=== PATIENT | female | born 1955 | race Caucasian/White ===

== ENCOUNTER → 2021-06-14 18:05 | Outpatient (CLI) | payer MEDICARE, OTHER, SELFPAY | PROVIDERS: Visit Provider Physician Assistant | DX: R21 Rash and other nonspecific skin eruption (principal) | CPT/HCPCS: 87070; 87075; 87077; 87147; 87185; 87186; 87205 ==

== ENCOUNTER → 2021-09-12 12:40 | Outpatient (CLI) | payer MEDICARE, OTHER, SELFPAY | DX: Z78.0 Asymptomatic menopausal state (principal); Z13.820 Encounter for screening for osteoporosis; Z90.710 Acquired absence of both cervix and uterus | CPT/HCPCS: 77080 ==

== ENCOUNTER → 2021-09-12 12:46 | Outpatient (CLI) | payer MEDICARE, OTHER, SELFPAY ==
--- NOTE | 2021-09-12 12:48 | DI.MG.S_ITS ---
BILATERAL DIGITAL SCREENING MAMMOGRAM 3D/2D WITH CAD: 09/12/2021 CLINICAL: Routine screening. Family history of breast cancer. Comparison is made to exams dated: 08/15/2020 mammogram, 04/28/2018 mammogram, and 01/15/2017 mammogram - outside location. There are scattered fibroglandular elements in both breasts. Current study was also evaluated with a Computer Aided Detection (CAD) system. There is a biopsy clip in the right breast. No significant masses, calcifications, or other findings are seen in either breast. There has been no significant interval change. IMPRESSION: NEGATIVE There is no mammographic evidence of malignancy. A 1 year screening mammogram is recommended. Based on the Tyrer Cuzick model (a risk assessment model) the patient's lifetime risk is 8.3% and her 10 year risk is 4.4%. According to the ACR, ACS, and NCCN guidelines, an annual breast MRI exam along with mammogram is recommended if the patient's lifetime risk is 20% or greater. This exam was interpreted at Station ID: [id number]. NOTE: For mammograms, a report in lay terms will be sent to the patient. Approximately 15% of breast malignancies will not be visualized mammographically. In the management of a palpable breast mass, a negative mammogram must not discourage biopsy of a clinically suspicious lesion. Electronically Signed By: Daryl raza/brian:09/12/2021 14:17:11 letter sent: Normal Exam ACR BI-RADS Category 1: Negative [id number]
== END ==
DX: Z12.31 Encounter for screening mammogram for malignant neoplasm of breast (principal); Z80.3 Family history of malignant neoplasm of breast
CPT/HCPCS: 77063; 77067

== ENCOUNTER → 2022-10-04 14:16 | Outpatient (CLI) | payer MEDICARE, OTHER, SELFPAY ==
[2022-10-04 15:44] LABS: Creatinine Urine Random 189.1 mg/dL
[2022-10-04 16:05] LABS: Microalbumin Urine Random < 0.6 mg/dL (0-1.6)
[2022-10-04 16:13] LABS: Alanine Aminotransferase 25 IU/L (<35); Albumin Globulin Ratio 1.5 (1.0-2.8); Alkaline Phosphatase 88 U/L (38-126); Aspartate Aminotransferase 26 IU/L (14-36); BUN Creatinine Ratio 20.2 (6-22); Bilirubin Total 0.3 mg/dL (0.2-1.3); Blood Urea Nitrogen 19 mg/dL (7-17); Calcium 9.2 mg/dL (8.4-10.2); Carbon Dioxide 29 mmol/L (22-32); Chloride 102 mmol/L (98-107); Cholesterol 208 mg/dL (140-199); Estimated Glomerular Filt Rate > 60 mL/min (>60); Globulin 2.7 g/dL (1.7-4.1); Glucose 106 mg/dL (80-110); HDL Cholesterol 60 mg/dL (40-60); HEMOLYSIS < 15 (0-50); LDL Cholesterol Calculated 95 mg/dL (<100); Potassium 3.8 mmol/L (3.4-5.1); Sodium 139 mmol/L (137-145); Total Protein 6.7 g/dL (6.3-8.2); Triglycerides 265 mg/dL (35-150)
== END ==
PROVIDERS: PCP Family Medicine; Referring Provider Family Medicine; Visit Provider Family Medicine
DX: Z00.00 Encounter for general adult medical examination without abnormal findings (principal); I10 Essential (primary) hypertension; Z12.11 Encounter for screening for malignant neoplasm of colon
CPT/HCPCS: 36415; 80053; 80061; 82043; 82570

== ENCOUNTER → 2022-12-02 09:55 | Outpatient (CLI) | payer MEDICARE, OTHER, SELFPAY ==
--- NOTE | 2022-12-02 | DI.MG.S_ITS ---
BILATERAL DIGITAL SCREENING MAMMOGRAM 3D/2D WITH CAD: 12/02/2022 CLINICAL: Routine screening. Family history of breast cancer. Comparison is made to exams dated: 09/12/2021 mammogram - [facility], 08/15/2020 mammogram, and 04/28/2018 mammogram - outside location. There are scattered areas of fibroglandular density in both breasts (category b / 25%-50% glandular tissue). Current study was also evaluated with a Computer Aided Detection (CAD) system. There is a biopsy clip in the right breast. No significant masses, calcifications, or other findings are seen in either breast. There has been no significant interval change. IMPRESSION: NEGATIVE There is no mammographic evidence of malignancy. A 1 year screening mammogram is recommended. Based on the Tyrer Cuzick model (a risk assessment model) the patient's lifetime risk is 7.9% and her 10 year risk is 4.4%. According to the ACR, ACS, and NCCN guidelines, an annual breast MRI exam along with mammogram is recommended if the patient's lifetime risk is 20% or greater. This exam was interpreted at Station ID: [id number]. NOTE: For mammograms, a report in lay terms will be sent to the patient. Approximately 15% of breast malignancies will not be visualized mammographically. In the management of a palpable breast mass, a negative mammogram must not discourage biopsy of a clinically suspicious lesion. Electronically Signed By: Daryl raza/brian:12/03/2022 16:04:33 letter sent: Normal Exam ACR BI-RADS Category 1: Negative [id number]
== END ==
PROVIDERS: PCP Family Medicine; Referring Provider Family Medicine; Visit Provider Family Medicine
DX: Z12.31 Encounter for screening mammogram for malignant neoplasm of breast (principal); Z80.3 Family history of malignant neoplasm of breast
CPT/HCPCS: 77063; 77067

== ENCOUNTER → 2023-12-04 12:30 | Outpatient (CLI) | payer MEDICARE, SELFPAY ==
--- NOTE | 2023-12-04 12:33 | DI.MG.S_ITS ---
BILATERAL DIGITAL SCREENING MAMMOGRAM 3D/2D WITH CAD: 12/04/2023 CLINICAL: Routine screening. Family history of breast cancer. Comparison is made to exams dated: 12/02/2022 mammogram, 09/12/2021 mammogram - [facility], and 08/15/2020 mammogram - outside location. There are scattered areas of fibroglandular density (category b / 25%-50% glandular tissue). Current study was also evaluated with a Computer Aided Detection (CAD) system. There is a biopsy clip in the right breast. No significant masses, calcifications, or other findings are seen in either breast. There has been no significant interval change. IMPRESSION: NEGATIVE There is no mammographic evidence of malignancy. A 1 year screening mammogram is recommended. Based on the Tyrer Cuzick model (a risk assessment model) the patient's lifetime risk is 7.5% and her 10 year risk is 4.4%. According to the ACR, ACS, and NCCN guidelines, an annual breast MRI exam along with mammogram is recommended if the patient's lifetime risk is 20% or greater. This exam was interpreted at Station ID: [id number]. NOTE: For mammograms, a report in lay terms will be sent to the patient. Approximately 15% of breast malignancies will not be visualized mammographically. In the management of a palpable breast mass, a negative mammogram must not discourage biopsy of a clinically suspicious lesion. Electronically Signed By: Tra colon/brian:12/05/2023 08:40:25 letter sent: Normal Exam ACR BI-RADS Category 1: Negative
--- NOTE | 2023-12-04 12:34 | DI.RAD.S_ITS ---
PROCEDURE: XR DEXA AXIAL SKELETON INDICATIONS: ROUTINE SCREENING / OSTEOPOROSIS SCREENING COMPARISON: [facility], ADAM, XR DEXA AXIAL SKELETON, 09/12/2021, 13:02. FINDINGS: Lumbar Spine: Bone mineral density 1.637 g/cm2, T score 5.1 Left Hip: Bone mineral density 0.994 g/cm2, T score 0.4. There is interval 17.7% decrease in total left hip bone mineral density. Left Femoral Neck: Bone mineral density 0.731 g/cm2, T score -1.1. There is interval 44.8% decrease in left femoral neck bone mineral density. Right Hip: Bone mineral density 0.940 g/cm2, T score 0.0. There is interval 0.1% decrease in right total hip bone mineral density. Right Femoral Neck: Bone mineral density 0.755 g/cm2, T score -0.8. There is interval 1.5% decrease in right femoral neck bone mineral density. Fracture Risk Calculation (when applicable): 10-year fracture risk of a major osteoporotic fracture 8.4 percent and of a hip fracture 0.8 percent. (T score greater or equal to -1.0 to: NORMAL) (T score from -1.1 to -2.4: OSTEOPENIA) (T score less than or equal to -2.5: OSTEOPOROSIS) IMPRESSION: Osteopenia with increased 10 year fracture risk. Follow-up guidelines as follows: Osteoporosis: Consider a repeat DEXA and Vertebral Fracture Assessment (VFA) exam in 2 years or sooner if medically necessary, to reassess this patient's status. Osteopenia: Consider a repeat DEXA in 2-3 years to reassess this patient's status, or if there is a new clinical indication. Normal: Consider a repeat DEXA in 5 years or sooner, or if there is a new clinical indication. All treatment decisions require clinical judgment and consideration of individual patient factors, including patient preferences, comorbidities, previous drug use, risk factors not captured in the FRAX model (e.g., frailty, falls, vitamin D deficiency, increased bone turnover, interval significant decline in bone density ) and possible under- or over-estimation of fracture risk by FRAX. In addition, the NOF Guide recommends that FDA-approved medical therapies be considered in postmenopausal women and men age >= 50 years with a: * Hip or vertebral (clinical or morphometric) fracture * T-score of <=-2.5 at the spine or hip * Ten-year fracture probability by FRAX of >= 3% for hip fracture or >=20% for major osteoporotic fracture. People with diagnosed cases of osteoporosis or at high risk for fracture should have regular bone mineral density tests. For patients eligible for Medicare, routine testing is allowed once every 2 years. The testing frequency can be increased to one year for patients who have rapidly progressing disease, those who are receiving or discontinuing medical therapy to restore bone mass, or have additional risk factors. Dictated by: Shashi Sanford M.D. on 12/04/2023 at 13:48 Approved by: Shashi Sanford M.D. on 12/04/2023 at 13:53
== END ==
PROVIDERS: PCP Physician Assistant; Referring Provider Physician Assistant; Visit Provider Physician Assistant
DX: Z12.31 Encounter for screening mammogram for malignant neoplasm of breast (principal); Z78.0 Asymptomatic menopausal state; Z80.3 Family history of malignant neoplasm of breast; M85.852 Other specified disorders of bone density and structure, left thigh
CPT/HCPCS: 77063; 77067; 77080

== ENCOUNTER 2024-07-29 00:27 | Emergency (ER) | payer MEDICARE, SELFPAY ==
[2024-07-29] VITALS (12 sets, daily range): BP systolic 155–193; BP diastolic 74–91; PULSE 64–92; RESP 17–25; TEMP 36.6; O2SAT 93–98; BMI 35.7
--- NOTE | 2024-07-29 00:58 | EKG_ITS ---
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
--- NOTE | 2024-07-29 00:58 | DI.RAD.S_ITS ---
PROCEDURE: XR CHEST 1V INDICATIONS: Chest Pain TECHNIQUE: One view of the chest was acquired. COMPARISON: None. FINDINGS: Surgical changes and devices: None. Lungs and pleura: Lungs are clear. No pleural effusions or pneumothorax. Mediastinum: Mediastinal contours appear normal. Heart size is normal. Bones and chest wall: No suspicious bony lesions. Overlying soft tissues appear unremarkable. IMPRESSION: No acute cardiopulmonary abnormalities or focal consolidation. Dictated by: Tra Ayoub M.D. on 07/29/2024 at 2:21 Approved by: Tra Ayoub M.D. on 07/29/2024 at 2:22
[2024-07-29 01:31] LABS: Add Manual Diff / Slide Review NO; Basophils Absolute Auto 100 /uL (0-100); Basophils Percent Auto 1.2 % (0-2); Eosinophils Absolute Auto 300 /uL (0-450); Eosinophils Percent Auto 3.6 % (2-4); Hemoglobin 14.2 g/dL (12.0-16.0); Lymphocytes Absolute Auto 3100 /uL (1100-4500); Lymphocytes Percent Auto 41.1 % (25-40); Mean Corpuscular HGB Conc 34.6 % (30-36); Mean Corpuscular Hemoglobin 33.3 PG (26-34); Mean Corpuscular Volume 96.3 fL (80-100); Monocytes Absolute Auto 700 /uL (0-900); Monocytes Percent Auto 9.2 % (3-14); Neutrophils Absolute Auto 3400 /uL (1500-7000); Neutrophils Percent Auto 44.9 % (50-75); Platelet Count 273 X10^3/uL (150-400); Red Blood Cell Count 4.26 X10^6/uL (4.0-5.2); Red Cell Distribution Width 13.9 % (11.6-14.8); White Blood Cell Count 7.7 X10^3/uL (4.5-11.0)
[2024-07-29 01:35] LABS: Prothrombin Time 10.9 SECONDS (9.4-12.5)
[2024-07-29 01:38] LABS: PTT Partial Thromboplastin Tim 37 SECONDS (25.1-36.5)
[2024-07-29] MEDS: ASPIRIN 81 MG CHEW TAB 324 MG PO (01:51)
[2024-07-29 01:55] LABS: Alanine Aminotransferase 28 IU/L (<35); Albumin Globulin Ratio 1.4 (1.0-2.8); Alkaline Phosphatase 87 U/L (38-126); Aspartate Aminotransferase 33 IU/L (14-36); BUN Creatinine Ratio 13.9 (6-22); Bilirubin Total 0.7 mg/dL (0.2-1.3); Blood Urea Nitrogen 16 mg/dL (7-17); Calcium 9.8 mg/dL (8.4-10.2); Carbon Dioxide 29 mmol/L (22-32); Chloride 103 mmol/L (98-107); Creatine Kinase 64 U/L (30-135); Estimated Glomerular Filt Rate 51 mL/min (>60); Globulin 2.8 g/dL (1.7-4.1); Glucose 106 mg/dL (70-99); HEMOLYSIS < 15 (0-50); Lipase 72 U/L (23-300); Magnesium 1.8 mg/dL (1.6-2.3); Potassium 3.9 mmol/L (3.4-5.1); Sodium 138 mmol/L (137-145); Total Protein 6.8 g/dL (6.3-8.2)
[2024-07-29 02:07] LABS: NT-proBNP (BNP-Adult 18+) 123 pg/mL (<125); Troponin I < 0.012 ng/mL (0.01-0.034)
--- NOTE | 2024-07-29 02:52 | ED_ITS ---
HPI - Chest Pain General Chief Complaint: Chest Pain Stated Complaint: High Blood pressure, Chest Pressure, Headache Time Seen by Provider: 07/29/24 01:46 Source: patient Mode of arrival: Ambulatory History of Present Illness HPI narrative: 69-year-old woman with a history of hypertension, migraine it earlier today had headache took her usual migraine medications and had minimal effect in reducing her headache. She then checked her blood pressure and found it to be relatively high with systolics in the 180 range. She was noticing some mild upper chest pressure and perhaps a sense of indigestion at this time and comes in for further evaluation. She has never had heart issues that she is aware of. By the time we are talking however symptoms have essentially resolved. Headache is gone, there is no chest pressure. Blood pressure still is slightly elevated. No palpitations lower extremity edema, abdominal pain, nausea or vomiting Related Data Previous Rx's ?Medication ?Instructions ?Recorded mupirocin 2 % topical ointment 1 applic topical BID-TI D 7 days 06/16/21 #22 grams Allergies Allergy/AdvReac Type Severity Reaction Status Date / Time No Known Drug Allergies Allergy Verified 07/29/24 00:48 Review of Systems Review of Systems Narrative: Pertinent positive and negative findings as per HPI Patient History Medical History (Updated 07/29/24 @ 04:38 by Lisa Galarza MD) Hypertension Migraine headache Smoking Status: Never smoker Alcohol type: hard liquor Exam Initial Vital Signs Initial Vital Signs: Vital Signs Temperature 97.8 F 07/29/24 00:48 Pulse Rate 92 H 07/29/24 00:48 Respiratory Rate 18 07/29/24 00:48 Blood Pressure 180/89 H 07/29/24 00:48 Pulse Oximetry 94 07/29/24 00:48 Oxygen Delivery Method Room Air 07/29/24 00:48 General: Healthy appearing, in no acute distress. Able to give a complete and coherent history. Well-nourished well-developed HEENT: Moist mucous membranes, normal sclera with reactive pupils, Neck: No JVD, supple Respiratory: Lungs are clear to auscultation, no wheezing no rales no rhonchi. Full and symmetrical air movement Cardiac: Regular rate and rhythm no murmurs no bruits Abdomen: Soft, nontender, no rebound or guarding, no flank pain Skin: Warm and dry, no rashes Neurologic: Grossly neurologically intact with no obvious asymmetries or abnormalities Extremities: No trauma, well perfused Psych: Cooperative, appropriate insight and affect Course Orders Ordered: ED Orders 07/29/24 00:58 XR chest 1V Stat EKG-12 Lead Stat 07/29/24 01:16 Complete Blood Count AUTO DIFF Stat Comprehensive Metabolic Panel Stat Lipase Stat Magnesium Stat NT-proBNP (BNP-Adult 18+) Stat PTT Partial Thromboplastin Travis Stat Prothrombin Time INR Stat Troponin & CK Cardiac Panel Stat Discontinued Medications Aspirin (Aspirin 81 Mg Chew Tab) 324 mg PO NOW ONE Stop: 07/29/24 00:59 Last Admin: 07/29/24 01:51 Dose: 324 mg Documented By: POLLO Vital Signs Vital signs: Vital Signs - 8 hr 07/29/24 00:48 07/29/24 01:54 07/29/24 02:00 Temperature 97.8 F Pulse Rate 92 H 86 80 Respiratory Rate 18 24 Blood Pressure 180/89 H Pulse Oximetry 94 94 93 Oxygen Delivery Method Room Air 07/29/24 02:01 07/29/24 02:01 07/29/24 02:30 Temperature Pulse Rate 79 77 Respiratory Rate 21 25 H Blood Pressure 165/74 H Pulse Oximetry 93 93 Oxygen Delivery Method 07/29/24 02:31 07/29/24 02:31 Temperature Pulse Rate 77 Respiratory Rate 24 Blood Pressure 172/78 H Pulse Oximetry 94 Oxygen Delivery Method MDM - Chest Pain Lab Data 07/29/24 01:16 07/29/24 01:16 Labs: Lab Results 07/29/24 Range/Units 01:16 WBC 7.7 (4.5-11.0) X10^3/uL RBC 4.26 (4.0-5.2) X10^6/uL Hgb 14.2 (12.0-16.0) g/dL Hct 41.0 (36-46) % MCV 96.3 (80-100) fL MCH 33.3 (26-34) PG MCHC 34.6 (30-36) % RDW 13.9 (11.6-14.8) % Plt Count 273 (150-400) X10^3/uL Neut % (Auto) 44.9 L (50-75) % Lymph % (Auto) 41.1 H (25-40) % [place] % (Auto) 9.2 (3-14) % Eos % (Auto) 3.6 (2-4) % Baso % (Auto) 1.2 (0-2) % Neut # (Auto) 3400 (2441-0120) /uL Lymph # (Auto) 3100 (1860-9781) /uL [place] # (Auto) 700 (0-900) /uL Eos # (Auto) 300 (0-450) /uL Baso # (Auto) 100 (0-100) /uL PT 10.9 (9.4-12.5) SECONDS INR 1.0 (0.9-1.3) APTT 37 H (25.1-36.5) SECONDS Sodium 138 (137-145) mmol/L Potassium 3.9 (3.4-5.1) mmol/L Chloride 103 (98-107) mmol/L Carbon Dioxide 29 (22-32) mmol/L BUN 16 (7-17) mg/dL Creatinine 1.15 H (0.52-1.04) mg/dL Estimated GFR 51 L (>60) mL/min BUN/Creatinine Ratio 13.9 (6-22) Glucose 106 H (70-99) mg/dL Calcium 9.8 (8.4-10.2) mg/dL Magnesium 1.8 (1.6-2.3) mg/dL Total Bilirubin 0.7 (0.2-1.3) mg/dL AST 33 (14-36) IU/L ALT 28 (<35) IU/L Alkaline Phosphatase 87 (38-126) U/L Total Creatine Kinase 64 (30-135) U/L Troponin I < 0.012 (0.01-0.034) ng/mL NT-Pro-B Natriuret Pep 123 (<125) pg/mL Total Protein 6.8 (6.3-8.2) g/dL Albumin 4.0 (3.5-5.0) g/dL Globulin 2.8 (1.7-4.1) g/dL Albumin/Globulin Ratio 1.4 (1.0-2.8) Lipase 72 (23-300) U/L MDM Narrative Medical decision making narrative: CC: Headache not resolving with migraine medication, elevated blood pressure Complicating co-morbidities: Hypertension, currently on metoprolol has not checked blood pressures recently. Was elevated today unclear if that has been chronically elevated, was elevated due to headache pain or was elevated and causing the had a Data collected from: patient Medical records reviewed: No medical records were immediately available Differential considered: Migraine headache, blood pressure related headache, acute coronary syndrome, hypertensive crisis Exam documented above, pertinent findings include: Exam is benign with resolution of both headache and questionable chest pressure and indigestion feeling Lab Test results independently reviewed as above. Pertinent findings: CBC is unremarkable Chemistries are reassuring. Initial and repeat troponin are undetectable ProBNP is not elevated Lipase is normal Independently reviewed EKG: Sinus rhythm at a rate of 89 no acute ischemic changes Imaging studies independently reviewed: Chest x-ray is entirely unremarkable Consultations: Treatments: 25 mg immediate release metoprolol Discussion: 69-year-old woman with headache, elevated blood pressure and slight indigestion pressure feeling in her chest. Cardiac workup is unremarkable with no evidence of acute coronary syndrome. As her headache has diminished so has her blood pressure. It is unclear if the 2 are separate issues or correlated. She was given additional dose of 25 mg of immediate release metoprolol and blood pressure has come down nicely. At this time there was no indication of acute coronary syndrome, hypertensive crisis, intracranial hemorrhage, stroke, headache has abated blood pressure is controlled and she is safe for discharge home Discharge Plan Departure Patient Disposition: Home Clinical Impression: Hypertension, Atypical chest pain, Headache Instructions: DI for High Blood Pressure Activity Restrictions/Additional Instructions: Thank you for coming in today I am not sure if the significant headache caused elevation in your blood pressure, if you are elevated blood pressure was contributing to your headache or if the 2 problems are both present and not related. At this time both seemed to be improved. You are given extra dose of short-acting metoprolol which did bring your blood pressure down nicely Your workup did not suggest any evidence of heart attack or heart attack like syndrome. No sign of infection, bleeding from your stomach or other problems that would require hospitalization today I would suggest that you do keep track of daily blood pressures to see what your blood pressures has been running with your current dose of metoprolol. Please schedule an appointment with your primary care physician to review blood pressure and make sure that you are in appropriate doses of medications. If you find that you are getting worse or develop any new symptoms, please feel free to return to the emergency department for further evaluation. Prescriptions: No Action mupirocin 2 % ointment 1 applic topical BID-TID 7 Days Qty: 22 1RF Referrals: Maida Vyas PA-C [Primary Care Provider, Medical] Stand Alone Forms: Patient Portal/API
[2024-07-29] MEDS: METOPROLOL IR 25 MG TABLET PO (03:28)
[2024-07-29 04:01] LABS: Troponin I < 0.012 ng/mL (0.01-0.034)
== END 2024-07-29 04:43 | disposition home or self-care (01) ==
PROVIDERS: Emergency Provider Emergency Medicine; PCP Physician Assistant
DX: I10 Essential (primary) hypertension (principal); R07.89 Other chest pain; R51.9 Headache, unspecified
CPT/HCPCS: 36415; 71045; 80053; 82550; 83690; 83735; 83880; 84484; 85025; 85610; 85730; 93005; 93010; 99284